=== PATIENT | female | born 1945 | race Two or more races ===

== ENCOUNTER 2022-08-15 21:07 | Emergency (ER) | payer OTHER ==
[~2022-08-15] VITALS: Ht 165.1 cm; Wt 63.6 kg
[2022-08-15] MEDS ORDERED: ACETAMINOPHEN 325 MG TAB PO ONE (23:45)
[2022-08-15] MEDS ORDERED: TETANUS-DIPTH-ACEL PERTUSSIS 0.5ML SYR Tdap IM ONE (23:45)
[2022-08-16] MEDS ORDERED: CLINDAMYCIN HCL 150 MG CAP PO ONE
[2022-08-16] MEDS ORDERED: CLIN300C8 PO
[2022-08-16] MEDS ORDERED: DOXY-338 PO
[2022-08-16] MEDS ORDERED: DOXYCYCLINE 100 MG TAB/CAP PO ONE
[2022-08-16 00:45] VITALS: BP 124/68
== END 2022-08-16 01:18 | disposition home or self-care (01) ==
LOC: ER 21:07
DX: S61.432A Puncture wound without foreign body of left hand, initial encounter (principal); S61.431A Puncture wound without foreign body of right hand, initial encounter; S50.811A Abrasion of right forearm, initial encounter; E78.5 Hyperlipidemia, unspecified; I10 Essential (primary) hypertension; Z88.1 Allergy status to other antibiotic agents; Z88.5 Allergy status to narcotic agent; Z88.2 Allergy status to sulfonamides; W55.01XA Bitten by cat, initial encounter; Y93.89 Activity, other specified; Y92.89 Other specified places as the place of occurrence of the external cause; Y99.8 Other external cause status
CPT/HCPCS: 90471; 90715

== ENCOUNTER 2025-03-27 14:01 | Emergency (ER) | payer OTHER ==
[~2025-03-27] VITALS: Ht 167.6 cm; Wt 67.4 kg
[~2025-03-27 14:01] MED LIST: CLIN1CAP70 PO; DOXY1CAP58 PO
--- NOTE | 2025-03-27 16:16 | DVH ---
RIGHT HIP: 3 view(s) were obtained to include the pelvis. HISTORY: Pain, trauma. COMPARISON: None available. FINDINGS: No acute fracture or dislocation. No sclerosis or lucency is demonstrated to the femoral heads. Normal acetabular morphology. Mild degenerative changes of the sacroiliac joints. Osseous structures are demineralized. IMPRESSION: No acute fracture or dislocation.
--- NOTE | 2025-03-27 16:18 | DVH ---
CLINICAL HISTORY: Right shoulder pain. TECHNIQUE: 3 views of the right shoulder were obtained. COMPARISON: None available. FINDINGS: No acute fracture or dislocation is seen. No soft tissue abnormality is evident. Mild degenerative changes of the acromioclavicular and glenohumeral joints. Osseous structures are demineralized. IMPRESSION: 1. No acute fracture or dislocation. 2. Mild degenerative changes as described.
[2025-03-27] MEDS ORDERED: TRAM50TA2 PO (17:29)
[2025-03-27] MEDS ORDERED: IBUP-1454 PO (17:29)
--- NOTE | 2025-03-27 17:30 | ED.PDOC ---
Musculoskeletal HPI Comments 80 y/o Female patient presents to the clinic for right hip pain and shoulder pain after a fall this morning. Patient states that she slipped and fell landing on the right hip. Patient complaining of pain in the right groin. Patient ambulates with a walker. No swelling or bruising noted. Chief Complaint: Fall Injury Time Seen by MD: 15:31 Reviewed Notes: Nurses Notes, Medications, Allergies Allergies: Coded Allergies: Azithromycin (Verified Allergy, Unknown, 08/15/22) Codeine (Verified Allergy, Unknown, 08/15/22) Sulfamethoxazole w/Trimethoprim (Verified Allergy, Unknown, 08/15/22) Uncoded Allergies: PENICILLIN (Allergy, Unknown, 08/15/22) SULFA (Allergy, Unknown, 08/15/22) Home Meds Active Scripts Ibuprofen (Ibuprofen) 600 Mg Tab, 1 TAB PO TID PRN for 30 Days, #90 TAB 0 Refills Prov:ANAMIKA FINCH [facility] 03/27/25 Tramadol Hcl (Tramadol Hcl) 50 Mg Tab, 50 MG PO Q8HP PRN for 3 Days, #9 TAB 0 Refills Prov:ANAMIKA FINCH [facility] 03/27/25 Doxycycline (Monohydrate) (Doxycycline) 100 Mg Cap, 100 MG PO BID for 10 Days, #20 CAP 0 Refills Prov:SANDY GONZALEZ 08/16/22 Clindamycin Hcl (Clindamycin Hcl) 300 Mg Cap, 1 CAP PO TID for 10 Days, #30 CAP 0 Refills Prov:SANDY GONZALEZ 08/16/22 Mode of Arrival: Ambulatory Past Medical History PAST MEDICAL HISTORY: High Lipids, HTN Surgical History: Denies all surgeries LIVING ADVISOR History: No Pertinent LIVING ADVISOR History Family History Family History: Reviewed,noncontributory to illness Social History Smoker: Non-Smoker Alcohol: Denies ETOH Use Drugs: Denies Drug Use Lives In: Home Constitutional: denies: chills, diaphoresis, fatigue, fever, malaise, sweats, weakness, others EENTM: denies: blurred vision, double vision, ear bleeding, ear discharge, ear drainage, ear pain, ear ringing, eye pain, eye redness, hearing loss, mouth pain, mouth swelling, nasal discharge, nose bleeding, nose congestion, nose pain, photophobia, tearing, throat pain, throat swelling, voice changes, others Respiratory: denies: cough, hemoptysis, orthopnea, SOB at rest, shortness of breath, SOB with excertion, stridor, wheezing, others Cardiovascular: denies: chest pain, dizzy spells, diaphoresis, Dyspnea on exertion, edema, irregular heart beat, left arm pain, lightheadedness, palpitations, PND, syncope, others Gastrointestinal: denies: abdomen distended, abdominal pain, blood streaked bowels, constipated, diarrhea, dysphagia, difficulty swallowing, hematemesis, melena, nausea, poor appetite, poor fluid intake, rectal bleeding, rectal pain, vomiting, others Genitourinary: denies: abnormal vagina bleeding, burning, dyspareunia, dysuria, flank pain, frequency, hematuria, incontinence, pain, , vagina discharge, urgency, others Neurological: denies: dizziness, fainting, headache, left sided numbness, left sided weakness, numbness, paresthesia, pre-existing deficit, right sided numbness, right sided weakness, seizure, speech problems, tingling, tremors, weakness, others Musculoskeletal: reports: joint pain (Right hip and right shoulder) Integumetry: denies: bruises, change in color, change in hair/nails, dryness, laceration, lesions, lumps, rash, wounds, others Allergic/Immunocompromised: denies: Difficulty Healing, Frequent Infections, Hives, Itching, others Hematologic/Lymphatic: denies: anemia, blood clots, easy bleeding, easy bruising, swollen glands, others Endocrine: denies: excessive hunger, excessive sweating, excessive thirst, excessive urination, flushing, intolerance to cold, intolerance to heat, unexplained weight gain, unexplained weight loss, others Psychiatric: denies: anxiety, bipolar disorder, depression, hopeless, panic disorder, schizophrenia, sleepless, suicidal, others All Other Systems: Reviewed and Negative Physical Exam General Appearance: No Apparent Distress, Normal HEENT: Normal ENT Inspection, Pharynx Normal, TMs Normal Neck: Full Range of Motion, Non-Tender, Normal, Normal Inspection Respiratory: Chest Non-Tender, Lungs Clear, No Accessory Muscle Use, No Respiratory Distress, Normal Breath Sounds Cardiovascular: No Edema, No JVD, No Murmur, No Gallop, Normal Peripheral Pulses, Regular Rate/Rhythm Breast Exam: Deferred Gastrointestinal: No Organomegaly, Non Tender, No Pulsatile Mass, Normal Bowel Sounds, Soft Genitalia: Deferred Pelvic: Deferred Rectal: Deferred Extremities: No calf tenderness, Normal capillary refill, Normal inspection, Normal range of motion, Non-tender, No pedal edema Musculoskeletal : Location: Right Extremity Location: Hip Apperance: Normal, Tenderness: Mild Neurologic: Alert, cfo II-XII nml as Tested, No Motor Deficits, Normal Affect, Normal Mood, No Sensory Deficits Cerebellar Function: Normal Reflexes: Normal Skin: Dry, Normal Color, Warm Lymphatic: No Adenopathy Was a procedure done? Was a procedure done?: No Differential Diagnosis EXT Differential Diagnosis: Fracture, Sprain, Contusion, Strain, Bursitis X-Ray, Labs, Meds, VS Vital Signs Date Time Temp Pulse Resp B/P (MAP) Pulse Ox O2 Delivery O2 Flow Rate FiO2 03/27/25 18:21 97.0 80 16 126/74 (91) 95 97.0 03/27/25 18:21 80 16 95 Room Air 03/27/25 14:02 97.6 86 14 132/79 93 97.6 Current Medications Medications (Trade) Dose Ordered Sig/Sander Route Start Time Stop Time Status Last Admin Ketorolac Tromethamine (Toradol Injection) 30 mg ONCE ONCE IM 03/27/25 17:45 03/27/25 17:46 DC 03/27/25 17:59 X-Ray, Labs, Meds, VS Comment On re-evaluation patient has symptomatic improvement. Patient is stable for discharge at this time. All test results and diagnostic imaging have been interpreted. All diagnostic findings, discharge care, and education instruction provided to the patient. Follow-up with PCP in 2-3 days Patient verbalized understanding, discharge instructions and agrees to treatment plan Vital signs are stable Patient is ambulatory Patient advised of which symptoms necessitate a return visit to the emergency room. Patient to return emergency room for any new worsening symptoms. Patient is aware that the purpose of this visit is for an acute medical emergency requiring emergent stabilization. Chronic conditions, including malignancies have not been ruled out. Patient is instructed to follow up with PCP as directed for continued care and workup. If unable to arrange follow up, patient is to return to the emergency room for reassessment. Patient was given verbal and written discharge instructions and acknowledges understanding Time of 1ST Reevaluation: 17:00 Reevaluation 1ST: Improved Patient Education/Counseling: Diagnosis, Treatment, Prognosis Family Education/Counseling: Diagnosis, Treatment, Prognosis Departure 1 Departure Time of Disposition: 17:28 Impression: Primary Impression: Contusion, hip Qualified Codes: S70.01XA - Contusion of right hip, initial encounter Disposition: HOME / SELF CARE / HOMELESS Condition: Fair e-Prescriptions Ibuprofen (Ibuprofen) 600 Mg Tab 1 TAB PO TID PRN for 30 Days, #90 TAB 0 Refills Prov: ANAMIKA FINCH [facility] 03/27/25 Tramadol Hcl (Tramadol Hcl) 50 Mg Tab 50 MG PO Q8HP PRN for 3 Days, #9 TAB 0 Refills Prov: ANAMIKA FINCH [facility] 03/27/25 Critical Care Note Critical Care Time?: No Stability Stability form required: No Heart Score Heart Score: Heart Score Response (Comments) Value History N/A 0 EKG N/A 0 Age N/A 0 Risk Factors N/A 0 Troponin N/A 0 Total [address] [facility] Mar 27, 2025 17:30
[2025-03-27] MEDS: KETOROLAC TROMETH 60MG/2ML VIAL IM ONE (17:59)
[2025-03-27 18:21] VITALS: BP 126/74; PULSE 80; RESP 16; TEMP 97; O2SAT 95
== END 2025-03-27 18:24 | disposition home or self-care (01) ==
LOC: ER 14:01
DX: S70.01XA Contusion of right hip, initial encounter (principal); I10 Essential (primary) hypertension; E78.5 Hyperlipidemia, unspecified; Z79.899 Other long term (current) drug therapy; Z88.5 Allergy status to narcotic agent; Z88.2 Allergy status to sulfonamides; Z88.1 Allergy status to other antibiotic agents; Z88.0 Allergy status to penicillin; W01.0XXA Fall on same level from slipping, tripping and stumbling without subsequent striking against object, initial encounter; Y93.89 Activity, other specified; Y92.89 Other specified places as the place of occurrence of the external cause; Y99.8 Other external cause status
CPT/HCPCS: 73030; 73502; 96372; 99284; J1885